=== PATIENT | male | born 1935 | race Caucasian/White ===

== ENCOUNTER → 2017-03-28 | Day surgery (SDC) | payer MEDICARE ==
[~2017-03-28] MED LIST: BELLADONNA ALKALOIDS/OPIUM 60 MG SUPP RECTAL ONE; DEXAMETHASONE SOD PHOS 4 MG/ML VIAL IV ONE; GENTAMICIN SULFATE 80 MG/2 ML VIAL ONE; LACTATED RINGER'S 1000 ML INJ 1,000 ML ONE; LIDOCAINE HCL 1% PF 5 ML AMPULE OTHER ONE; MEPERIDINE HCL 25 MG/ML VIAL ONE; MIDAZOLAM HCL 2 MG/2 ML VIAL ONE; MORPHINE SULFATE 4 MG/ML INJ ONE; ONDANSETRON HCL 4 MG/2 ML VIAL IV PUSH ONE; PROPOFOL 200 MG/20 ML AMP IV ONE; SODIUM CHLORIDE 0.9% 100 ML ADDBAG IV ONE; ceFAZolin INJ 1,000 MG VIAL ONE
--- NOTE | 2017-03-28 12:24 | TN ---
cc: KAREN ALANIZ M.D. DATE OF SURGERY 03/28/2017 PREOPERATIVE DIAGNOSES 1. Acute on chronic urinary retention (ICD-10 Code R33.8). 2. Benign prostatic hyperplasia (ICD-10 Code N40.1). POSTOPERATIVE DIAGNOSIS 1. Acute on chronic urinary retention (ICD-10 Code R33.8). 2. Benign prostatic hyperplasia (ICD-10 Code N40.1). PROCEDURE 1. Transurethral resection of prostate (TURP) (CPT code 66826). 2. Transurethral incision of the prostate (TUIP) (CPT code 46038). INDICATION Mr. Álvarez is an 81-year-old gentleman who has a history of chronic urinary retention, recently developed acute urinary retention and has failed maximum pharmacologic intervention and multiple trials of voiding, presents now for definitive treatment. FINDINGS IN DETAIL Normal anterior urethra. The prostate shows massive bilobular hyperplasia. The previously thought median lobe is actually the left lateral lobe a portion of which is so large it emerges through the bladder neck and into the bladder itself, so there really is no significant median lobe, just lateral lobe obstruction. The bladder itself shows severe trabeculation with multiple diverticula. There is no tumor or stone identified. The ureteral orifice is normal in size, shape and position, effluxing clear urine. Also during the resection there were some microabscesses and a relatively large abscess also in that left lateral lobe of the prostate. There was significant vascularity additionally of the prostate as expected. PROCEDURE IN DETAIL The procedure as well as risks and benefits were explained to the patient and informed consent was obtained. The patient was taken to the major operative theater where he was placed in supine position. The patient was identified as well as the operative site. A universal time-out was performed in standard fashion. At this time general anesthetic and prophylactic intravenous antibiotics consisting of Ancef 1 gram and gentamicin 80 mg was administered after adequate anesthetic, he was placed in low dorsal lithotomy position with some mild Trendelenburg, prepped and draped in the usual sterile fashion. At this time a 22.5-Indian cystoscope with a 30-degree lens was inserted into the urethra and bladder with the above findings. The cystoscope was then removed and a 27-Indian Richey resectoscope with a right-angle bladder loop was placed under direct vision and, using normal saline and the Gyrus Bipolar System, a transurethral resection of the prostate was performed in a standard fashion. Since he really did not have any median lobe, attention was directed to that left lateral lobe which was intravesical and this was essentially first resected so that there could be good flow and visualization. Then essentially the bladder neck was resected in standard fashion, the lateral lobes first on the left and then the right. Care was taken not to resect distal to the proximal verumontanum which was kept in vision throughout the case. As mentioned there were multiple microabscesses and one very large abscess in the left lateral lobe which was evacuated and resected. After a large amount of tissue was resected in an open channel, decision was made to take down the bladder neck since it seemed to be still a high-riding bladder neck and using a needle electrode a transurethral incision was performed in the midline from the bladder neck to the verumontanum and dropped the bladder neck down nicely. At this time evacuation of all of the prostate chips were performed and sent for final pathological evaluation and inspection of the bladder showed no incidental damage to the ureteral orifices or damage to the bladder itself. Care was taken to inspect the sphincter which was intact and there was no resection near the sphincter. The verumontanum was also preserved. At this time, after meticulous hemostasis, the bladder was filled and the resectoscope removed. Pressure was placed on the dome of the bladder. There was an excellent stream. At this time a 24-Indian, three-way hematuria catheter was placed with the help of a Super Stiff guidewire into the bladder. The irrigation port was capped. 50 cc of sterile water was insufflated in the balloon and placed on mild tension temporarily. There was clear urine effluxing. After the irrigation port was capped, a belladonna and opioid suppository was placed per rectum. The patient was then placed back in the supine position. He emerged from anesthetic without difficulty and was transferred to Recovery in stable condition to be discharged home when criteria is met. There were no obvious complications. MD SHAWNA Avelar/CELY /11:58 AM /12:06 PM
== END | disposition home or self-care (01) ==
LOC: ESDC 06:26
PROVIDERS: ATTEND Urology
DX: N40.1 Benign prostatic hyperplasia with lower urinary tract symptoms (principal); R33.8 Other retention of urine
CPT/HCPCS: 00910; 00914; 52450; 52601; 88305; C1769; J0690; J1100; J1580; J2175; J2250; J2270; J2405; J3010; J7120

== ENCOUNTER → 2017-04-10 | Outpatient (CLI) | payer MEDICARE ==
[2017-04-10 10:07] LABS: HEMATOCRIT 40.1 % (39.0-51.0); REVIEW FLAG FINAL
== END ==
LOC: ELAB 09:21
PROVIDERS: ATTEND Urology
DX: R31.0 Gross hematuria (principal)
CPT/HCPCS: 36415; 85014; 85018